=== PATIENT | female | born 1980 | race Caucasian/White ===

== ENCOUNTER 2017-04-08 12:15 | Outpatient (CLI) | payer OTHER ==
[2017-04-08 12:27] LABS: BASOPHILS % 0.2 (0.0-1.5); EOSINOPHILS % 1.9 % (0.0-6.8); MEAN CORPUSCULAR HEMOGLOBIN 22.6 pg (28.0-34.0); MEAN CORPUSCULAR VOLUME 72.5 fl (80.0-100.0); MONOCYTES % 3.4 % (0.0-11.0); NEUTROPHILS # 6.4 # k/uL (1.4-7.7)
[2017-04-08 12:56] LABS: eGFR (African) > 60; eGFR (Non-African) > 60
[2017-04-08 23:41] LABS: SERUM IRON 26 ug/dL (37-145)
== END 2017-04-08 12:16 ==
LOC: LAB 12:15
PROVIDERS: ATTEND Nurse Practitioner Family
DX: N94.4 Primary dysmenorrhea (principal); R53.83 Other fatigue; R00.0 Tachycardia, unspecified
CPT/HCPCS: 36415; 80053; 83540; 83550; 84439; 84443; 84703; 85025; 85651

== ENCOUNTER 2017-04-15 08:42 | Outpatient (CLI) | payer OTHER ==
[2017-04-15 09:05] LABS: BASOPHILS % 0.6 (0.0-1.5); EOSINOPHILS % 3.2 % (0.0-6.8); MEAN CORPUSCULAR HEMOGLOBIN 22.9 pg (28.0-34.0); MEAN CORPUSCULAR VOLUME 75.1 fl (80.0-100.0); MONOCYTES % 3.8 % (0.0-11.0); NEUTROPHILS # 4.9 # k/uL (1.4-7.7)
== END 2017-04-15 08:44 ==
LOC: LAB 08:42
PROVIDERS: ATTEND Nurse Practitioner Family
DX: R71.0 Precipitous drop in hematocrit (principal)
CPT/HCPCS: 36415; 85025

== ENCOUNTER 2017-04-22 15:18 | Outpatient (CLI) | payer OTHER ==
[2017-04-22 15:27] LABS: BASOPHILS % 0.5 (0.0-1.5); EOSINOPHILS % 2.4 % (0.0-6.8); MEAN CORPUSCULAR VOLUME 75.4 fl (80.0-100.0); MONOCYTES % 4.7 % (0.0-11.0)
== END 2017-04-22 15:20 ==
LOC: LAB 15:18
PROVIDERS: ATTEND Nurse Practitioner Family
DX: R71.0 Precipitous drop in hematocrit (principal)
CPT/HCPCS: 36415; 85025